=== PATIENT | female | born 1965 | race Caucasian/White ===

== ENCOUNTER 2019-02-20 10:21 | Emergency (ER) | payer BC ==
[~2019-02-20 10:21] MED LIST: Iopamidol 370 76% 100 ML VIAL ONE; Sodium Chloride 0.9% 1,000 ML BAG ONE
[2019-02-20] MEDS ORDERED: Promethazine HCl 25 MG/ML VIAL ONE (10:41)
[2019-02-20 10:54] LABS: #Basophils 0.1 thou/uL (0.0-0.2); #Eosinphils 0.3 thou/uL (0.0-0.7); #Lymphocytes 1.7 thou/uL (1.20-3.40); #Monocytes 0.7 thou/uL (0.11-0.59); #Neutrophils 10.5 thou/uL (1.40-6.50); %Basophils 0.6 % (0.0-1.0); %Eosinophils 2.1 % (0.0-10.0); %Lymphocytes 12.9 % (21.0-51.0); %Monocytes 5.5 % (0.0-10.0); Hemoglobin 16.5 g/dL (12.0-16.0); Mean Corpuscular HGB CONC 32.8 g/dL (32.0-36.0); Mean Corpuscular Hemoglobin 30.9 pg (27.0-31.0); Mean Corpuscular Volume 94.3 fL (78.0-98.0); Mean Platelet Volume 9.3 fL (7.4-10.4); Platelet Count 211 thou/uL (130-400); Red Blood Cell (RBC) Count 5.32 mill/uL (4.20-5.40); White Blood Cell (WBC) Count 13.3 thou/uL (4.8-10.8)
[2019-02-20 11:01] LABS: ALT (SGPT) 13 U/L (8-55); AST (SGOT) 18 U/L (5-34); Albumin 5.4 g/dL (3.5-5.0); Alkaline Phosphatase 106 U/L (40-110); Anion Gap 20 mmol/L (10-20); BUN (Urea Nitrogen) 9 mg/dL (9.8-20.1); Bilirubin, Total 0.7 mg/dL (0.2-1.2); Calc. Creatinine Clearance 0 mL/min (70-130); Calcium 11.2 mg/dL (7.8-10.44); Carbon Dioxide 20 mmol/L (22-29); Chloride 104 mmol/L (98-107); Estimated GFR-MDRD 48; Globulin 4.1 g/dL (2.4-3.5); Glucose 217 mg/dL (70-105); Lipase 21 U/L (8-78); Potassium 3.9 mmol/L (3.5-5.1); Protein, Total 9.5 g/dL (6.0-8.3); Sodium 140 mmol/L (136-145)
[2019-02-20] MEDS ORDERED: Morphine 4 MG/ML VIAL ONE (11:03)
[2019-02-20 11:09] LABS: Acetaminophen Less than 6.0 mcg/mL (10.0-30.0); Alcohol Less than 10 mg/dL (Less than 10); Salicylate Less than 8.0 mg/dL (15.0-30.0)
[2019-02-20] MEDS ORDERED: Dicyclomine 10 MG CAP ONE (11:58)
--- NOTE | 2019-02-20 13:23 | CT ---
CT ABDOMEN WITH CONTRAST CT PELVIS WITH CONTRAST: DATE: 02/20/2019 HISTORY: 53-year-old female with nausea, vomiting, diarrhea, and generalized abdominal pain. COMPARISON: None available TECHNIQUE: IV injection of iodinated contrast media: administered. Oral contrast media:Not administered FINDINGS: Diffuse moderate to severe mural edema and mural thickening of the entire colon. No abscess. 1 cm right renal midpole low-density lesion, probably cyst. Low density lesion and cortical defect at right upper pole with small dystrophic calcification, proba david scar. No other renal abnormality bilaterally. Abdominal aorta, adrenals, pancreas, spleen, appendix, and urinary bladder. No ascites or pneumoperitoneum. Lung bases grossly clear. IMPRESSION: Riley colitis.
[2019-02-20] MEDS ORDERED: Ciprofloxacin Lactate/D5W 400 mg/200 ml Premix ONE (13:38)
[2019-02-20] MEDS ORDERED: metroNIDAZOLE 500 MG/100 ML BAG ONE (13:38)
== END 2019-02-20 14:53 | disposition home or self-care (01) ==
LOC: MADERS 10:21
DX: K52.9 Noninfective gastroenteritis and colitis, unspecified (principal); R73.9 Hyperglycemia, unspecified; F41.9 Anxiety disorder, unspecified; F32.9 Major depressive disorder, single episode, unspecified; F17.200 Nicotine dependence, unspecified, uncomplicated
CPT/HCPCS: 36415; 74177; 80053; 80307; 83605; 83690; 85025; 96361; 96365; 96367; 96368; 96375; J0744; J2270; J2550; J7050; Q9967

== ENCOUNTER 2022-06-16 09:21 | Emergency (ER) | payer BC ==
[~2022-06-16 09:21] MED LIST changes: -Sodium Chloride 0.9% 1,000 ML BAG ONE
[2022-06-16] MEDS ORDERED: Sodium Chloride 0.9% 1,000 ML ONE (09:37)
[2022-06-16] MEDS ORDERED: Fentanyl 100 MCG/2 ML VIAL ONE (09:38)
[2022-06-16] MEDS ORDERED: Promethazine HCl 25 MG/ML VIAL ONE ×2 (09:38→11:45)
[2022-06-16] MEDS ORDERED: Sodium Chloride 0.9% 100 ML ONE ×2 (09:49→11:15)
[2022-06-16 10:03] LABS: Eosinophils 4 % (0-10); Hemoglobin 16.7 g/dL (12.0-16.0); Lymphocytes 2 % (21-51); MDiff Complete? YES; Mean Corpuscular HGB CONC 34.5 g/dL (32.0-36.0); Mean Corpuscular Hemoglobin 32.6 pg (27.0-31.0); Mean Corpuscular Volume 94.4 fl (78.0-98.0); Mean Platelet Volume 10.2 fL (7.4-10.4); Monocytes 2 % (0-10); Neutrophil 89 % (42-75); Platelet Count 179 10x3/uL (130-400); Platelet Morphology Comment Appears Adequate; RBC Distribution Width 11.4 % (11.5-14.5); RBC Morphology Normal; Reactive Lymphocytes 3 % (0-10); Red Blood Cell (RBC) Count 5.11 mill/uL (4.20-5.40); White Blood Cell (WBC) Count 16.9 10x3/uL (4.8-10.8)
[2022-06-16 10:05] LABS: ALT (SGPT) 16 U/L (8-55); AST (SGOT) 24 U/L (5-34); Albumin 5.2 g/dL (3.5-5.0); Alkaline Phosphatase 98 U/L (40-110); Anion Gap 23 mmol/L (10-20); BUN (Urea Nitrogen) 16 mg/dL (9.8-20.1); Bilirubin, Total 0.7 mg/dL (0.2-1.2); Calc. Creatinine Clearance 0 mL/min (70-130); Calcium 10.6 mg/dL (7.8-10.44); Carbon Dioxide 14 mmol/L (22-29); Chloride 107 mmol/L (98-107); Estimated GFR 55; Glucose 211 mg/dL (70-105); Lipase 28 U/L (8-78); Potassium 5.2 mmol/L (3.5-5.1); Protein, Total 8.2 g/dL (6.0-8.3); Sodium 139 mmol/L (136-145)
[2022-06-16] MEDS ORDERED: Ampicillin/Sulbactam 3 GM VIAL ONE (11:15)
[2022-06-16] MEDS ORDERED: Sodium Chloride 0.9% 50 ML ONE (11:46)
== END 2022-06-16 13:54 | disposition home or self-care (01) ==
LOC: MADERS 09:21
DX: K52.9 Noninfective gastroenteritis and colitis, unspecified (principal); E86.0 Dehydration; R11.2 Nausea with vomiting, unspecified; F17.210 Nicotine dependence, cigarettes, uncomplicated; Z79.899 Other long term (current) drug therapy
CPT/HCPCS: 74177; 80053; 83690; 83735; 85025; 96365; 96366; 96368; 96375; J0295; J2550; J3010; J3490; J7050; Q9967